=== PATIENT | female | born 2000 | race Caucasian/White ===

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

== ENCOUNTER 2018-10-25 23:29 | Inpatient (IN) ==
[~2018-10-25 23:29] MED LIST: *HR* Nalbuphine 10 MG/ML AMPUL IVP PRN; Famotidine 20 MG/2 ML VIAL IVP PRN; Lidocaine 1% 20 ML MDV INFILT PRN; Metoclopramide 10 MG/2 ML VIAL IVP PRN; Naloxone 0.4 MG/ML INJ IVP PRN; Ondansetron 4 MG/2 ML VIAL IVP PRN; Oxytocin 20 units/ LR 1000 mL 20 UNIT/1,000 ML BAG IVC SCH; Ringers Solution, Lactated 1,000 ML IVC SCH; miSOPROStol 25 MCG TABLET PO PRN
[2018-10-26 00:22] LABS: Basophils # 0.1 K/mcL (0.0-0.2); Basophils % 0.6 %; Eosinophils # 0.1 K/mcL (0.0-0.6); Eosinophils % 0.8 %; Hematocrit 35.5 % (35.3-44.9); Hemoglobin 11.4 g/dL (11.5-15.4); Immature Granulocytes % 0.7 % (0-4); Lymphocytes # 1.8 K/mcL (0.6-4.6); Lymphocytes % 20.3 %; Mean Corpuscular HGB Conc 32.1 g/dL (31.6-35.5); Mean Corpuscular Hemoglobin 27.7 pg (28.0-33.3); Mean Corpuscular Volume 86.4 fL (83.0-100.0); Mean Platelet Volume 11.4 fL (9.4-12.4); Neutrophils # 5.8 K/mcL (1.6-8.9); Platelet Count 169 K/mcL (140-400); Red Blood Count 4.11 M/mcL (3.82-4.97); Red Cell Distribution Width 13.8 % (11.5-14.5); Segmented Neutrophils % 66.6 %; White Blood Count 8.7 K/mcL (4.3-11.1)
[2018-10-26 01:00] LABS: Amphetamine Screen,Urine Negative ng/mL (Cutoff=1000); Barbiturate Screen,Urine Negative ng/mL (Cutoff=200); Benzodiazepines Screen,Urine Negative ng/mL (Cutoff=200); Cannabinoid Screen,Urine Positive ng/mL (Cutoff = 50); Cocaine Screen,Urine Negative ng/mL (Cutoff= 300); Opiate Screen,Urine Negative ng/mL (Cutoff=300); Phencyclidine Screen,Urine Negative ng/mL (Cutoff=25)
--- NOTE | 2018-10-26 01:07 | OB/GYN History & Physical ---
Date of Encounter: 10/26/18 Time of Encounter: 00:59 Assessment and Plan (1) 37 weeks gestation of Current visit: Yes Status: Acute Admit for delivery due to spontaneous rupture of membranes (2) NST (non-stress test) reactive Current visit: Yes Status: Acute FHR 140 bpm, moderate variability, +15x15 accels, no decels. (3) Spontaneous rupture of amniotic membranes Current visit: Yes Status: Acute Admit for SROM at 37w1d -Augment with Pitocin -Epidural or IV pain medication when patient desires -Anticipate History of Present Illness Chief complaint: SROM at 1999 HPI: Ms. Christensen is a 18 year old female at 37w1d who presents to L&D with SROM of clear fluid at 1999 this evening. She reports positive movement and denies any vaginal bleeding. Her has been uncomplicated aside from late care due to close spacing and patient being unaware she was . Her first visit ultrasound showed a 31 week so she only had 5 visits. She received her care with Dr. Ardon. Blood type O+ GBS negative Rubella Immune Varicella Immune HbSAG negative T. Pall negative HIV NR Hep C negative Past Med Surg Social Fam HX - Past Medical History Source: patient Medical history: no medical history Psychiatric history: no psych history - Past Surgical History Surgical History: no surgical history Additional surgical history: wisdom teeth - Social History Smoking Status: Never smoker Smokeless Tobacco Status: No Alcohol use: none Drug use: none Current living situation: Home - Independent Activity Level: Independent ambulation Recent Out of Country Travel Within the Last 8 Weeks: No Exposure or Possible Exposure to Illness During Travel: No - Family History Father Living Status: Still Living Hx Family Cardiac Disorders: Yes (hypertension) Hx Family Respiratory Disorders: No Hx Family Cancer: No Hx Family GI Disorders: No Hx Family Genitourinary Disorders: No Hx Family Endocrine Disorder: No Hx Family Neuromuscular Disorders: No Hx Family Neurologic Disorders: No Hx Family HEENT Disorders: No Hx Family Autoimmune Disorders: No Hx Family Reproductive Disorders: No Hx Family Psychosocial Disorders: No Hx Family Medical Disorders: No Obstetrical History - Pregnancies : 2 Para: 1 Term: 1 : 0 Ab's: 0 Livin Medications and Allergies Vit Comb.10/Iron/FA [Vitafol-Ob Caplet] 1 mg PO DAILY 04/29/17 [History] Benzocaine/Menthol [place] [Dermoplast [place]] 1 appl TP QID PRN aerosol 05/01/17 [Rx] Docusate [Colace] 100 mg PO BID capsule 05/01/17 [Rx] Ibuprofen [Motrin] 600 mg PO Q6HR PRN #30 tablet 05/01/17 [Rx] Lanolin [Lansinoh] 1 appl TP Q4HR PRN oint...g. 05/01/17 [Rx] Allergy/AdvReac Type Severity Reaction Status Date / Time No Known Allergies Allergy Verified 04/29/17 11:04 Review of System OB All systems PM: reviewed and no additional remarkable complaints except as stated Exam - Constitutional Constitutional: well developed, well nourished, no acute distress, average body habitus - HEENT HEENT: PERRL, Normocephaly - Neck Neck exam: full ROM - Lungs Respiratory exam: CTAB - Cardiovascular Cardiovascular exam: RRR, +S1, +S2 - Abdomen Abdomen: Present: bowel sounds normal, gravid, non tender - Extremities Extremities exam: full ROM, normal capillary refill, normal inspection - Vulva Vulva: bilateral: normal - Vagina Vagina: Present: normal moisture, discharge (clear amniotic fluid) - Cervix Dilation: 4 (per RN exam) Effacement: 80 Station: -1 - Uterus Uterus exam: Present: normal size, normal contour - Anus/Rectum Anus/Rectum: Present: normal perianal skin Results Result Diagrams: 10/25/18 23:30 Abnormal lab results Hgb 11.4 g/dL (11.5-15.4) L 10/25/18 23:30 MCH 27.7 pg (28.0-33.3) L 10/25/18 23:30 All other labs normal. - VTE Reasons for not Prescribing Prophylaxis: Treatment not Indicated - Low risk for VTE
[2018-10-26] MEDS ORDERED: EPHEDrine 50 MG/ML VIAL IVP PRN (01:43)
[2018-10-26] MEDS ORDERED: Ropivacaine/PF 0.2% 20 ML VIAL EP ONE (01:43)
[2018-10-26] MEDS ORDERED: Ondansetron 4 MG/2 ML VIAL IVP PRN (01:43)
[2018-10-26] MEDS ORDERED: *HR* FentaNYL (PF) 100 MCG/2 ML VIAL EP ONE (01:43)
[2018-10-26] MEDS ORDERED: Naloxone 0.4 MG/ML INJ IVP PRN (01:43)
[2018-10-26] MEDS ORDERED: Epidural Premix (fent/bupiv) 110 ML EP SCH (01:45)
--- NOTE | 2018-10-26 01:48 | Anesthesia Evaluation PreOp ---
Date of Encounter: 10/26/18 Time of Encounter: 01:38 - Past History Planned Operation: BINH Cardiac History: Denies any Significant Hx Pulmonary History: Denies Any Significant HX DELIVERY ASSISTANT History: Denies Any Significant HX Other Medical History: Denies Any Significant HX Anesthesia History: No Prior Anesthetic Complications, Past Anesthesia ([place] teeth extraction, previous epidural) Alcohol Use: none Drug use: none Medications and Allergies Vit Comb.10/Iron/FA [Vitafol-Ob Caplet] 1 mg PO DAILY 04/29/17 [History] Benzocaine/Menthol [place] [Dermoplast [place]] 1 appl TP QID PRN aerosol 05/01/17 [Rx] Docusate [Colace] 100 mg PO BID capsule 05/01/17 [Rx] Ibuprofen [Motrin] 600 mg PO Q6HR PRN #30 tablet 05/01/17 [Rx] Lanolin [Lansinoh] 1 appl TP Q4HR PRN oint...g. 05/01/17 [Rx] Allergy/AdvReac Type Severity Reaction Status Date / Time No Known Allergies Allergy Verified 04/29/17 11:04 - Meds/Allergy Pre-op Review Medications Reviewed: Yes Allergies Reviewed: Yes Beta Blockers on Current Med List: No Anesthesia Results - Labs 10/25/18 23:30 Anesthesia Exam BP 137/70 P 75 R 16 T 99.0 Height: 5'4" Weight: 92.9kg NPO (# of Hours): 4 Pain Scale: 3 Pain Scale Used: Numeric (1 - 10) - HEENT Pupil (Motor): Pupils equal Mallampati: II Teeth: Normal Oral Opening: Greater than 3 - DELIVERY ASSISTANT LOC: Oriented DELIVERY ASSISTANT Motor: Normal RUE, Normal LUE, Normal RLE, Normal LLE, Normal Face DELIVERY ASSISTANT Sensory: Normal: RUE, LUE, RLE, LLE, Face - Cardiac Rhythm: Regular Murmur: None JVD: No Carotid Bruit: No - Pulmonary Breath Sounds: bilateral Clear Respiratory Effort: Symmetrical Anesthesia Assess/Plan ASA Score: 2 Level of consciousness: Cooperative, Oriented, Tranquil Anesthetic Plan: Epidural Autologous Blood: No Monitoring Plan: Standard Monitors Recovery Plan: Other
[2018-10-26] MEDS ORDERED: *HR* FentaNYL (PF) 100 MCG/2 ML VIAL ONE (02:51)
--- NOTE | 2018-10-26 03:27 | Anesthesia Procedures ---
Date of Encounter: 10/26/18 Time of Encounter: 02:58 Procedures: Anesthesia - Epidural/Spinal Patient ID/Chart reviewed: Yes Patient examined: Yes OB Eval: Gestational age: 37.1 OB Eval: : 2 OB Eval: Hx Para: 1 OB Eval: Dilated at (cm): 4 OB Eval: Contractions: Non-stressed pattern Consent Obtained: Yes Supplemental Oxygen: None/Room Air Site Prep: Aseptic Technique, Sterile prep and drape Patient position: upright Local Anesthetic: Lidocaine 1% Amount of Local Anesthetic used: 3 Touhy Needle Gauge: 18 Touhy Needle Depth (cm): 6 Catheter Depth at Skin (cm): 15 Test Dose (1.5% Lido + Epi): Volume given (mls): 3 Test Dose Result: Negative Loading Dose: Fentanyl (mcg): 100 Loading Dose: Other: Ropivicaine 0.2% 5ml, normal saline 3ml Loading Dose Administered: Thru Catheter Infusion Med: 0.125% Bupivacaine w/ 2 mcg/ml Fentanyl Infusion Rate (mls/hr): [address]: Tegaderm, Tape Interspace Used: L3-L4 Loss of Resistance (RAÚL): Yes Blood: No CSF: No Paresthesia: No Procedure: BINH placed 1st pass in upright position. RAÚL achieved with normal saline. Catheter threaded with ease to 15cm at the skin. Test dose negative. Pt stated comfort with epidural bolus administration. VSS throughout. Vitals + FHT's: 0258 BP 137/84 P 69 R 18 0322 BP 120 68 P 77 R 16
--- NOTE | 2018-10-26 05:41 | OB/GYN Procedure Note ---
Delivery - Delivery Date: 10/26/18 Provider: Margarita Alarcon Intrapartum events: none Delivery induction: none Delivery augmentation: pitocin Delivery monitor: external FHT, external uterine Anesthesia: epidural Quantitated Blood Loss: 25 - Infant (s) A Infant Delivery Date: 10/26/18 Infant Delivery Time: 04:44 Presentation: vertex Position: CARINA Route of delivery: Gender: Male Viability: Viable Pounds: 7 Ounces: 0 Weight Gram: 3185 kg at 1 minute: 8 at 5 mins: 9 Shoulder Dystocia: not encountered Specimens collected: cord blood Placenta: spontaneous Cord: 3 umbilical vessels - Repair Episiotomy: none Laceration Description: None - Complications Delivery complications: none Delivery comments: Patient was augmented with Pitocin then received an epidural for pain management. She progressed to complete dilation and pushed effectively, at which time I was called to room for delivery. Under maternal effort, spontaneous delivery of viable male infant over intact perineum. Infant placed on maternal abdomen for drying and stimulation. Cord clamped and cut after pulsation ceased. Spontaneous delivery of intact placenta, EBL 25 mL's. No nuchal cord, shoulder dystocia, or meconium encountered. with apgars of 8 and 9 and weighed 7# 0oz. Mother and infant in kangaroo care for 2 hour recovery. - Disposition Mom disposition: stable in LDR [place] disposition: stable in LDR
[2018-10-26] MEDS ORDERED: Ibuprofen 600 MG TABLET PO PRN (09:20)
[2018-10-26] MEDS ORDERED: Oxytocin 20 units/ LR 1000 mL 20 UNIT/1,000 ML BAG IVC SCH (09:20)
[2018-10-26] MEDS ORDERED: Acetaminophen 325 MG TABLET PO PRN (09:20)
[2018-10-26] MEDS: Prenatal Vit/FA 1 EACH TABLET PO SCH (10:14)
[2018-10-27] MEDS: Prenatal Vit/FA 1 EACH TABLET PO SCH (07:44)
[2018-10-27 08:23] VITALS: BP 131/84
--- NOTE | 2018-10-27 09:01 | Discharge Summary ---
Date of Encounter: 10/27/18 Time of Encounter: 08:59 - Discharge Diagnosis (1) Vaginal delivery Priority: Primary Status: Acute Comments: Patient meeting day one milestones. Pain well-controlled with prescribed medications. Voiding without difficulty, tolerating regular diet, bleeding light. Positie bowel movement. Anticipate discharge today (2) Marijuana use Priority: Secondary Status: Acute Comments: +THC on admission to L&D Social service consult placed. (3) Late care Priority: Secondary Status: Acute Comments: Social service consult placed. Patient initiated care at 31 weeks - Discharge Medications Prescriptions: New Acetaminophen [Tylenol] 650 mg PO Q6HR PRN tablet PRN Reason: Mild Pain Ibuprofen [Motrin] 600 mg PO Q6HR PRN #60 tablet PRN Reason: Cramping Continued Vit Comb.10/Iron/FA [Vitafol-Ob Caplet] 1 mg PO DAILY Benzocaine/Menthol Lyle [Dermoplast Lyle] 1 appl TP QID PRN aerosol PRN Reason: See Comments Discontinued Ibuprofen [Motrin] 600 mg PO Q6HR PRN #30 tablet PRN Reason: Cramping Docusate [Colace] 100 mg PO BID capsule Lanolin [Lansinoh] 1 appl TP Q4HR PRN oint...g. PRN Reason: Home Medications: Vit Comb.10/Iron/FA [Vitafol-Ob Caplet] 1 mg PO DAILY 04/29/17 [History] Benzocaine/Menthol Lyle [Dermoplast Lyle] 1 appl TP QID PRN aerosol 05/01/17 [Rx] Acetaminophen [Tylenol] 650 mg PO Q6HR PRN tablet 10/27/18 [Rx] Ibuprofen [Motrin] 600 mg PO Q6HR PRN #60 tablet 10/27/18 [Rx] Allergies/Adverse Reactions: Allergy/AdvReac Type Severity Reaction Status Date / Time No Known Allergies Allergy Verified 04/29/17 11:04 Data Procedures and tests throughout hospitalization: Laboratory Tests 10/25/18 10/25/18 23:30 23:30 WBC 8.7 RBC 4.11 Hgb 11.4 L Hct 35.5 MCV 86.4 MCH 27.7 L MCHC 32.1 RDW 13.8 Plt Count 169 MPV 11.4 Immature Gran % 0.7 Seg Neutrophils % 66.6 Lymphocytes % 20.3 Monocytes % 11.0 Eosinophils % 0.8 Basophils % 0.6 Neutrophils # 5.8 Lymphocytes # 1.8 Monocytes # 1.0 Eosinophils # 0.1 Basophils # 0.1 Urine Opiates Screen Negative Ur Buprenorphine Scrn Negative Ur Barbiturates Screen Negative Ur Phencyclidine Scrn Negative Ur Amphetamines Screen Negative U Benzodiazepines Scrn Negative Urine Cocaine Screen Negative U Marijuana (THC) Screen Positive H Ur Drug Screen Interp See Below Date of admission: 10/25/18 23:29 Primary care physician: PCP RACHELLE Consults: 10/26/18 09:20 Consult to High School Football Coach [CONS] Routine Comment: Vaginal delivery, consult needed Consult to Appeals Court Associate Justice [CONS] Routine Reason for SW Consult: + THC on admit. Late care. Close spacing Discharging clinician: Margarita Alarcon Anticipated date of discharge: 10/27/18 - Patient Status Disposition: Home, Self-Care Condition: Good Functional capacity at discharge: independent ambulation Overall status at discharge: patient is progressing back to baseline - Discharge Instructions Follow Up With: RACHELLE,PCP [Primary Care Provider] - Margarita Alarcon, CNM [Advanced Practice Nurse] - - Diet and Activity Activity: resume usual activities as tolerated Diet: regular diet Hospital Course Reason for admission: rupture of membranes Delivery: Episiotomy: none Laceration: none Other procedures: none complications: none Discharge diagnosis: IUP at term delivered baby: male Hospital course: Delivery Date: 10/26/18 Provider: Margarita Alarcon Intrapartum events: none Delivery induction: none Delivery augmentation: pitocin Delivery monitor: external FHT, external uterine Anesthesia: epidural Quantitated Blood Loss: 25 - Infant (s) A Infant Delivery Date: 10/26/18 Infant Delivery Time: 04:44 Presentation: vertex Position: CARINA Route of delivery: Gender: Male Viability: Viable Pounds: 7 Ounces: 0 Weight Gram: 3185 kg at 1 minute: 8 at 5 mins: 9 Shoulder Dystocia: not encountered Specimens collected: cord blood Placenta: spontaneous Cord: 3 umbilical vessels - Repair Episiotomy: none Laceration Description: None - Complications Delivery complications: none Delivery comments: Patient was augmented with Pitocin then received an epidural for pain management. She progressed to complete dilation and pushed effectively, at which time I was called to room for delivery. Under maternal effort, spontaneous delivery of viable male infant over intact perineum. placed on maternal abdomen for drying and stimulation. Cord clamped and cut after pulsation ceased. Spontaneous delivery of intact placenta, EBL 25 mL's. No nuchal cord, shoulder dystocia, or meconium encountered. with apgars of 8 and 9 and weighed 7# 0oz. Mother and in kangaroo care for 2 hour recovery. - Disposition Mom disposition: stable in LDR disposition: stable in LDR Time Attestation: Total time spent providing and/or coordinating discharge services: Time Spent: Less than 30 minutes Exam - Constitutional Vitals: Temp Pulse Resp BP Pulse Ox 97.7 F 50 14 131/84 98 10/27/18 08:22 10/27/18 08:22 10/27/18 08:22 10/27/18 08:22 10/27/18 08:22 General appearance IM: A&O X 3, pleasant, no acute distress, answers questions appropriately - Respiratory Respiratory exam: Present: CTAB. Absent: respiratory distress - Cardiovascular Cardiovascular exam IM: Present: RRR, +S1, +S2. Absent: irregular rhythm - GI/Abdominal GI/Abdominal exam IM: normal bowel sounds, soft - Rectal Rectal exam: deferred - External exam: normal external exam Uterine Tone: Firm Uterus Position: At Umbilicus, Midline - Extremities Exam Extremities exam IM: Present: full ROM, normal capillary refill, normal insp ection. Absent: calf tenderness - Neurological Exam Neurological exam: alert, normal gait, oriented X3
== END 2018-10-27 12:30 | disposition home or self-care (01) | DRG 807 ==
LOC: 1NENULAB → 1NENUOBS 10-26 09:19
PROVIDERS: ADMIT Registered Nurse; ATTEND Registered Nurse